=== PATIENT | female | born 1950 | race Caucasian/White ===

== ENCOUNTER 2016-06-02 12:56 | Inpatient (IN) ==
--- NOTE | 2016-06-02 13:38 | Emergency Department Note ---
Disposition Clinical Impression: Syncope and collapse, Hyperglycemia Disposition: Admitted As Inpatient Condition: Fair Time of Disposition: 15:48 Syncope HPI - General Chief Complaint: ED Syncope Stated Complaint: Dizzy, Fall Time Seen by Provider: 06/02/16 13:11 Source: patient Limitations: no limitations Nursing Notes Reviewed: Yes Vital Signs Reviewed: Yes - History of Present Illness HPI Narrative: Patient is a 65-year-old female who presents to [facility] ED with a chief complaint of syncopal episode. Prior to arrival, they were walking into a fast food restaurant when she felt dizzy and lightheaded and collapsed. States she did hit the back of her head. Positive loss of consciousness. Is having some neck pain. She has a history of frequent syncopal episodes. Apparently she had a surgical procedure in her neck to remove a bone spur that they thought was causing syncopal episodes. States they have improved since then but she is still having them. Denies any chest pain or difficulty breathing. No abdominal pain, problems with urination or bowel movements. No fevers or chills. 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 Past Medical History - Past Medical History Attestation: Yes The following information was validated with the patient. Source: patient Medical history: Reports: diabetes, other Psychiatric history: Reports: anxiety, depression - Social History Smoking Status: Never smoker Smokeless Tobacco Status: No Alcohol use: Reports: none Drug use: Reports: none Physical Exam - General Limitations: no limitations General appearance: alert, in no apparent distress - Head Head exam: atraumatic, normocephalic, normal inspection - Eye Eye exam: Present: normal appearance, PERRL, EOMI - ENT ENT exam: normal exam, normal oropharynx, mucous membranes moist - Neck Neck exam: Present: normal inspection, full ROM, trachea midline, tenderness - Chest Chest inspection: Present: normal inspection, symmetric chest wall rise - Respiratory Respiratory exam: Present: normal lung sounds bilaterally - Cardiovascular Cardiovascular exam: Present: regular rate, normal rhythm, normal heart sounds - Abdominal Exam Abdominal exam: Present: soft, Non-Tender. Absent: tenderness, distention, guarding, rebound, rigidity - Extremities Exam Extremities exam: Present: normal inspection, full ROM. Absent: tenderness, pedal edema - Back Exam Back exam: Present: normal inspection, full ROM. Absent: tenderness - Neurological Exam Neurological exam: Present: alert, oriented X3 - Psychiatric Psychiatric exam: Present: normal affect, normal mood - Skin Skin exam: Present: warm, dry, intact, normal color Course Course Narrative: Patient seen and examined. Syncopal episode today with head injury. We will do cardio pulmonary workup and CT head and cervical spine. - Reevaluation(s) Reevaluation #1: Patient's imaging is unremarkable. Her lab work shows hyperglycemia with a glucose 450. Patient does have a history of diabetes. We gave her a liter bolus of fluids. Labs otherwise unremarkable. Will admit for syncope workup. I spoke with the hospitalist Elba Weiss who has accepted patient for admission. Time: 15:47 Vital Signs Temperature 98 F 06/02/16 13:02 Pulse Rate 97 06/02/16 13:02 Respiratory Rate 16 06/02/16 13:02 Blood Pressure 151/77 06/02/16 13:02 O2 Sat by Pulse Oximetry 97 06/02/16 13:02 Temperature 98 F 06/02/16 13:02 Pulse Rate 89 06/02/16 14:32 Respiratory Rate 16 06/02/16 13:22 Blood Pressure 142/105 06/02/16 14:32 O2 Sat by Pulse Oximetry 92 L 06/02/16 13:22 Oxygen Delivery Oxygen Delivery Room Air Syncope - Medical Records Medical records reviewed: Yes I reviewed the patient's medical records. - Lab Data Lab results reviewed: Yes I reviewed the patient's lab results. Result diagrams: 06/02/16 13:41 06/02/16 13:41 Lab Results 06/02/16 06/02/16 06/02/16 Range/Units 13:41 13:41 13:41 WBC 6.3 (4.3-11.1) K/mcL RBC 4.38 (3.82-4.97) M/mcL Hgb 12.7 (11.5-15.4) g/dL Hct 38.7 (35.3-44.9) % MCV 88.4 (83.0-100.0) fL MCH 29.0 (28.0-33.3) pg MCHC 32.8 (31.6-35.5) g/dL RDW 12.8 (11.5-14.5) % Plt Count 244 (140-400) K/mcL MPV 11.0 (9.4-12.4) fL Immature Gran % 0.3 (0-4) % Seg Neutrophils % 52.7 % Lymphocytes % 37.5 % Monocytes % 6.4 % Eosinophils % 2.6 % Basophils % 0.5 % Neutrophils # 3.3 (1.6-8.9) K/mcL Lymphocytes # 2.4 (0.6-4.6) K/mcL Monocytes # 0.4 (0.0-1.3) K/mcL Eosinophils # 0.2 (0.0-0.6) K/mcL Basophils # 0.0 (0.0-0.2) K/mcL PT 11.7 (9.4-12.1) Seconds INR 1.1 APTT 29.3 (26.0-36.0) Seconds VBG pH (7.32-7.42) pH Units VBG pCO2 (41-51) mmHg VBG pO2 (25-40) mmHg VBG HCO3 (21-27) mEq/L Sodium 135 L (136-145) mEq/L Potassium 4.2 (3.5-4.5) mEq/L Chloride 104 (98-109) mEq/L Carbon Dioxide 22 (19-29) mEq/L BUN 11 (7-20) mg/dL Creatinine 0.97 (0.57-1.11) mg/dL Est GFR ( Amer) > 60 (> 60) Est GFR (Non-Af Amer) 58 L (> 60) BUN/Creatinine Ratio 11 (6-26) Glucose 453 H (70-99) mg/dL POC Glucose (58-89) Calculated Osmolality 299 (280-300) Calcium 8.5 L (8.6-10.8) mg/dL Troponin I (0-0.03) ng/mL Beta-Hydroxybutyric Acd (0.02-0.27) mmol/L 06/02/16 06/02/16 06/02/16 Range/Units 13:41 14:32 14:48 WBC (4.3-11.1) K/mcL RBC (3.82-4.97) M/mcL Hgb (11.5-15.4) g/dL Hct (35.3-44.9) % MCV (83.0-100.0) fL MCH (28.0-33.3) pg MCHC (31.6-35.5) g/dL RDW (11.5-14.5) % Plt Count (140-400) K/mcL MPV (9.4-12.4) fL Immature Gran % (0-4) % Seg Neutrophils % % Lymphocytes % % Monocytes % % Eosinophils % % Basophils % % Neutrophils # (1.6-8.9) K/mcL Lymphocytes # (0.6-4.6) K/mcL Monocytes # (0.0-1.3) K/mcL Eosinophils # (0.0-0.6) K/mcL Basophils # (0.0-0.2) K/mcL PT (9.4-12.1) Seconds INR APTT (26.0-36.0) Seconds VBG pH (7.32-7.42) pH Units VBG pCO2 (41-51) mmHg VBG pO2 (25-40) mmHg VBG HCO3 (21-27) mEq/L Sodium (136-145) mEq/L Potassium (3.5-4.5) mEq/L Chloride (98-109) mEq/L Carbon Dioxide (19-29) mEq/L BUN (7-20) mg/dL Creatinine (0.57-1.11) mg/dL Est GFR ( Amer) (> 60) Est GFR (Non-Af Amer) (> 60) BUN/Creatinine Ratio (6-26) Glucose (70-99) mg/dL POC Glucose 426 H* (58-89) Calculated Osmolality (280-300) Calcium (8.6-10.8) mg/dL Troponin I 0.00 (0-0.03) ng/mL Beta-Hydroxybutyric Acd 0.12 (0.02-0.27) mmol/L 06/02/16 Range/Units 14:48 WBC (4.3-11.1) K/mcL RBC (3.82-4.97) M/mcL Hgb (11.5-15.4) g/dL Hct (35.3-44.9) % MCV (83.0-100.0) fL MCH (28.0-33.3) pg MCHC (31.6-35.5) g/dL RDW (11.5-14.5) % Plt Count (140-400) K/mcL MPV (9.4-12.4) fL Immature Gran % (0-4) % Seg Neutrophils % % Lymphocytes % % Monocytes % % Eosinophils % % Basophils % % Neutrophils # (1.6-8.9) K/mcL Lymphocytes # (0.6-4.6) K/mcL Monocytes # (0.0-1.3) K/mcL Eosinophils # (0.0-0.6) K/mcL Basophils # (0.0-0.2) K/mcL PT (9.4-12.1) Seconds INR APTT (26.0-36.0) Seconds VBG pH 7.30 L (7.32-7.42) pH Units VBG pCO2 51 (41-51) mmHg VBG pO2 41 H (25-40) mmHg VBG HCO3 25.1 (21-27) mEq/L Sodium (136-145) mEq/L Potassium (3.5-4.5) mEq/L Chloride (98-109) mEq/L Carbon Dioxide (19-29) mEq/L BUN (7-20) mg/dL Creatinine (0.57-1.11) mg/dL Est GFR ( Amer) (> 60) Est GFR (Non-Af Amer) (> 60) BUN/Creatinine Ratio (6-26) Glucose (70-99) mg/dL POC Glucose (58-89) Calculated Osmolality (280-300) Calcium (8.6-10.8) mg/dL Troponin I (0-0.03) ng/mL Beta-Hydroxybutyric Acd (0.02-0.27) mmol/L - Radiology Data Radiology results reviewed: Yes I reviewed the patient's radiology results. Chest X-Ray 06/02/16 13:22 IMPRESSION: No acute radiographic finding in the chest. D/ / Raoul Mckenzie MD / Raoul Mckenzie MD Interpreting Provider: Raoul Mckenzie MD Cervical Spine CT 06/02/16 13:24 IMPRESSION: No acute abnormality of the cervical spine. D/ / Evens Hurley MD / Evens Hurley MD Interpreting Provider: Evens Hurley MD Head CT 06/02/16 13:24 IMPRESSION: 1. No acute intracranial abnormality. 2. Status post suboccipital craniotomy. D/ / Evens Hurley MD / Evens Hurley MD Interpreting Provider: Evens Hurley MD - EKG Data EKG attestation: Yes I reviewed and interpreted this EKG. EKG results narrative: EKG done at 1317 shows normal sinus rhythm with a rate of [address] elevation or depression. Prominent Q-wave in lead 3 and inverted T-wave. Normal axis. Attestation Statement - Attestation Attestation: Patient was seen with resident physician. I reviewed the history, physical, assessment and plan, and agree with the findings. I also personally evaluated this patient and had [id number] time with this patient. 65-year-old female presents to the emergency department with chief complaint of syncope. Patient states she had a bone spur removed from her neck which was causing syncope approximately a year ago. She said this was a defect, but cannot otherwise characterize the injury. Said that her syncopal have improved but they have gotten worse the last 2 days. Last night she had a syncopal episode where she fell to the ground and woke up on the ground. Today she is going to fast food restaurant and had a witnessed second syncopal episode where she was getting out of car and fell down impacting the back of her head on the ground. She was unconscious for an unspecified amount of time. Nursing reports stated that as she was attempting to get out of her wheelchair and into the bed she got very lightheaded and almost passed out. Patient denies chest pain or shortness of breath. She has had some mild head and neck tenderness and pain, but she is able to ambulate otherwise. On examination ENT normocephalic atraumatic. Neck is nontender to palpation she is in a c-collar at the time of exam. Heart normal. Lungs normal. Abdomen soft and nontender. Pelvis stable. Extremities unremarkable with no acute injuries. Neurologically patient is intact and alert and oriented. Will do full syncope workup including head CT scan. EKG shows no acute changes. Laboratory testing was significant for hyperglycemia without acidosis. Orthostatic vital signs did not show significant changes. We will admit patient to the hospital for syncope considering her age and recurrence of symptoms. Head and neck CT showed no acute changes. Chest x-ray was also negative. EKG did not show any specific cause for her symptoms. Hemodynamically she remained stable. I agree with the resident physician assessment and plan.
[2016-06-02 13:50] LABS: Basophils % 0.5 %; Eosinophils # 0.2 K/mcL (0.0-0.6); Eosinophils % 2.6 %; Hematocrit 38.7 % (35.3-44.9); Hemoglobin 12.7 g/dL (11.5-15.4); Immature Granulocytes % 0.3 % (0-4); Lymphocytes # 2.4 K/mcL (0.6-4.6); Lymphocytes % 37.5 %; Mean Corpuscular HGB Conc 32.8 g/dL (31.6-35.5); Mean Corpuscular Volume 88.4 fL (83.0-100.0); Monocytes # 0.4 K/mcL (0.0-1.3); Monocytes % 6.4 %; Neutrophils # 3.3 K/mcL (1.6-8.9); Platelet Count 244 K/mcL (140-400); Red Blood Count 4.38 M/mcL (3.82-4.97); Red Cell Distribution Width 12.8 % (11.5-14.5); Segmented Neutrophils % 52.7 %
[2016-06-02 14:01] LABS: INR 1.1; Prothrombin Time 11.7 Seconds (9.4-12.1)
[2016-06-02 14:02] LABS: BUN/Creatinine Ratio 11 (6-26); Blood Urea Nitrogen 11 mg/dL (7-20); Calcium 8.5 mg/dL (8.6-10.8); Carbon Dioxide 22 mEq/L (19-29); Chloride 104 mEq/L (98-109); Glucose 453 mg/dL (70-99); Osmolality,Calculated 299 (280-300); Potassium 4.2 mEq/L (3.5-4.5); Sodium 135 mEq/L (136-145); eGFR For African Americans > 60 (> 60); eGFR For Non-African Americans 58 (> 60)
[2016-06-02 14:04] LABS: Activated Partial Thrombo Time 29.3 Seconds (26.0-36.0)
[2016-06-02] MEDS ORDERED: 0.9 % Sodium Chloride 1,000 ML IVC ONE (14:21)
[2016-06-02 15:09] LABS: VBG HCO3 25.1 mEq/L (21-27); VBG PH 7.3 pH Units (7.32-7.42)
[2016-06-02] MEDS ORDERED: Naloxone 0.4 MG/ML INJ IVP PRN (16:33)
[2016-06-02] MEDS ORDERED: D5% in Water 1,000 ML IV PRN (16:42)
[2016-06-02] MEDS ORDERED: Dextrose Gel 15 GM PO PRN ×2 (16:42)
[2016-06-02] MEDS ORDERED: *HR* Dextrose 50 % in Water (Syg) 50 ML SYRINGE IVP PRN (16:42)
[2016-06-02] MEDS ORDERED: *HR* LORazepam 0.5 MG TABLET PO PRN (16:47)
--- NOTE | 2016-06-02 17:11 | Internal Med History&Physical ---
Date of Encounter: 06/02/16 Time of Encounter: 16:00 Assessment and Plan (1) Syncope and collapse Current visit: Yes Status: Acute Etiology is undetermined. Patient has a brain surgery, need to rule out seizure /neurology etiology. 1. Will place patient on continuous cardiac monitoring to rule out arrhythmia. 2. Will check echocardiogram. 3. Will order MRI brain and MRA neck to rule out infarct. 4. Will order EEG to rule out seizure. 5. Will ask for neurology consult. Neurologist Dr. Magaña was informed. 6. Fall precautions 7. Orthostatic vitals done in ER, no orthostatic hypotension. (2) Hypertension Current visit: Yes Status: Acute Continue home medications losartan. Qualifiers: Hypertension type: essential hypertension Qualified Code(s): I10 - Essential (primary) hypertension (3) Diabetes Current visit: Yes Status: Acute Patient has poorly controlled diabetes. Will continue basal and sliding scale insulin coverage. Closely follow up glucose level. Will give IV fluid hydration because of the glucose level is high. Qualifiers: Diabetes mellitus type: type 2 Diabetes mellitus complication status: without complication Diabetes mellitus detention insulin use: with terminal gauger use Qualified Code(s): E11.9 - Type 2 diabetes mellitus without complications ; Z79.4 - rn long term care (current) use of insulin (4) Hyperglycemia Current visit: Yes Status: Acute Glu >400, Ketone negative, AG 9, Osm 299. We will continue basal and sliding scale insulin. IV fluid to correct dehydration. (5) DVT prophylaxis Current visit: Yes Status: Acute Heparin subcutaneously Internal Medicine - H&P: HPI Chief complaint: Syncope Admitted From: Home Plans for Post Hospital Care: Home History of present illness: Ms. Dang is a 65 year old female present to ER for syncope. Patient has history of diabetes. Patient has a history of brain surgery in last June ( "water drainage" per pt) in [facility] by Dr Hooper. After surgery, patient started to feel vertigo, symptoms is getting worse recently. Patient has syncope twice yesterday and twice today. She complains headache prior to syncope. She denies of palpitation, feeling hungry prior to syncope. Syncope was witnessed by family, lasted several seconds. Patient denies injury. Family said the patient has no shaking during syncope. Patient denies urinary or fecal incontinence, denies tongue bite. Patient was sent to emergency room for syncope. She was found hyperglycemia at 400 level. Ketone is negative. Patient has poorly controlled diabetes, last hemoglobin A1c checked 2 months ago , was 12. Patient denies fever, runny nose, muscle aches, nausea, or vomiting. She has chronic diarrhea with loose stool 3 time a day for 3 months. Past Med Surg Social Fam HX - Past Medical History Medical history: diabetes, other Psychiatric history: anxiety, depression - Social History Smoking Status: Never smoker Smokeless Tobacco Status: No Alcohol use: none Drug use: none Internal Medicine - H&P: Meds Aspirin [Lo-Dose Aspirin EC] 81 mg PO DAILY 06/02/16 [History] Insulin Glargine,Hum.rec.anlog [Lantus Solostar] 45 unit SQ HS 06/02/16 [History ] Insulin LISPRO [HumaLOG] 7 units SQ TIDWM 06/02/16 [History] LORazepam [Ativan] 0.5 mg PO QID PRN 06/02/16 [History] Losartan Potassium [Cozaar] 50 mg PO DAILY 06/02/16 [History] Meclizine [Antivert] 25 mg PO TID PRN 06/02/16 [History] Melatonin/Pyridoxine HCl (B6) [Melatonin 5 mg Tablet] 10 mg PO HS 06/02/16 [ History] Paroxetine [Paxil] 30 mg PO DAILY 06/02/16 [History] Allergies No Known Allergies Allergy (Verified 06/02/16 13:02) All Systems PM: A 10-system review of systems was performed and is negative for pertinent findings except as documented above in the HPI. - Constitutional Vitals: Temp Pulse Resp BP Pulse Ox 98 F 85 16 150/83 95 06/02/16 13:02 06/02/16 16:41 06/02/16 16:41 06/02/16 16:41 06/02/16 16:41 General appearance: Present: A&O X 3, obese, answers questions appropriately - Head Head exam: Present: atraumatic, normocephalic - Eye Eye exam: Present: PERRL, conjuntiva pink, sclera anicteric Pupils: Present: PERRL - Neck Neck exam general surgery: Present: supple, trachea midline. Absent: lymphadenopathy - Respiratory Respiratory exam: Present: CTAB. Absent: accessory muscle use, rales, rhonchi, wheezes - Cardiovascular Cardiovascular exam: Present: RRR, +S1, +S2. Absent: diastolic murmur, gallop, rubs, systolic murmur - GI/Abdominal GI/Abdominal exam: Present: normal bowel sounds, soft, no peritoneal signs. Absent: distended, tenderness - Extremities Exam Extremities exam: Present: warm, radial pulses palpable and symetrical. Absent : calf tenderness, cyanotic, pedal edema - Neurological Exam Neurological exam: Present: CN II-XII intact, oriented X3, no focal deficits. Absent: pronater drift, facial droop, speech deficit - Skin Skin exam: Present: dry, intact Internal Med - H&P Results - Labs CBC & Chem 7: 06/02/16 13:41 06/02/16 13:41
[2016-06-02] MEDS: Insulin DETEMIR 100 UNIT/ML X5UNITS SQ SCH (21:20)
[2016-06-02] MEDS: *HR* Heparin 5,000 UNIT/ML VIAL SQ SCH (21:20)
[2016-06-02] MEDS: 0.9 % Sodium Chloride 1,000 ML IVC SCH (21:47)
[2016-06-02] MEDS: Insulin LISPRO 300 UNITS/3 ML VIAL SQ SCH (22:47)
[2016-06-02] MEDS: MELATONIN PO SCH (22:52)
[2016-06-02] MEDS: PYRIDOXINE HCL PO SCH (22:52)
[2016-06-03 04:55] LABS: Basophils % 0.3 %; Eosinophils # 0.3 K/mcL (0.0-0.6); Eosinophils % 2.5 %; Hematocrit 39.3 % (35.3-44.9); Immature Granulocytes % 0.5 % (0-4); Lymphocytes # 4.1 K/mcL (0.6-4.6); Lymphocytes % 40.4 %; Mean Corpuscular HGB Conc 33.1 g/dL (31.6-35.5); Mean Corpuscular Hemoglobin 29.3 pg (28.0-33.3); Mean Corpuscular Volume 88.5 fL (83.0-100.0); Mean Platelet Volume 10.9 fL (9.4-12.4); Monocytes # 0.7 K/mcL (0.0-1.3); Monocytes % 7.2 %; Platelet Count 261 K/mcL (140-400); Red Blood Count 4.44 M/mcL (3.82-4.97); Segmented Neutrophils % 49.1 %
[2016-06-03 05:02] LABS: Hemoglobin A1C 9.8 %
[2016-06-03] MEDS: *HR* Heparin 5,000 UNIT/ML VIAL SQ SCH ×2 (06:17→18:23)
[2016-06-03 06:50] LABS: Alanine Aminotransferase 26 Units/L (0-55); Albumin 3.2 g/dL (3.5-5.0); Albumin/Globulin Ratio 1.1 (1.1-2.2); Alkaline Phosphatase 110 Units/L (38-126); Aspartate Amino Transferase 25 Units/L (5-34); BUN/Creatinine Ratio 10 (6-26); Bilirubin,Total 0.4 mg/dL (0.2-1.2); Blood Urea Nitrogen 8 mg/dL (7-20); Calcium 8.5 mg/dL (8.6-10.8); Carbon Dioxide 23 mEq/L (19-29); Chloride 111 mEq/L (98-109); Chol/HDL Ratio 4.1 (0-4.9); Cholesterol 211 mg/dL (< 200); Glucose 79 mg/dL (70-99); HDL Cholesterol 51 mg/dL (40-59); LDL Cholesterol,Calculated 128 mg/dL (0-99); Magnesium 1.8 mg/dL (1.6-2.6); Osmolality,Calculated 291 (280-300); Phosphorous 3.5 mg/dL (2.3-4.7); Potassium 3.5 mEq/L (3.5-4.5); Sodium 142 mEq/L (136-145); Total Protein 6.2 g/dL (6.0-8.3); Triglycerides 160 mg/dL (< 150); eGFR For African Americans > 60 (> 60); eGFR For Non-African Americans > 60 (> 60)
[2016-06-03] MEDS: 0.9 % Sodium Chloride 1,000 ML IVC SCH ×2 (07:40→13:38)
[2016-06-03] MEDS: Insulin LISPRO 300 UNITS/3 ML VIAL SQ SCH ×5 (07:42→22:06)
[2016-06-03] MEDS: Aspirin Enteric Coated 81 MG Tablet PO SCH (07:47)
[2016-06-03] MEDS: Acetaminophen 325 MG TABLET PO PRN ×2 (11:13→20:49)
--- NOTE | 2016-06-03 11:47 | Neurology - Consult Note ---
Date of Encounter: 06/03/16 Time of Encounter: 08:35 Assessment and Plan (1) Syncope and collapse Current Visit: Yes Status: Acute Patient seems to have multiple spells, dominantly all of them seems to be happening when she is standing and never happen when she is laying in the bed less likely Seizures, she also get dizzy when standing up quickly, suspect orthostatic vs other cardiac causes, I would recommend cardiogenic workup NO evidence of Stroke, MRI is negative for any acute findings at the same time no evidence of any other vascular abnormality on MRA of the neck particularly no evidence of any posterior circulation impingement dissection or off any critical stenosis will get EEG, showing no interictal abnormality no indication to start on any seizure medication. suggest work up for cardiac causes of syncopy as well as other metabolic work up as per primary team (2) H/O cervical discectomy Current Visit: Yes Status: Acute This patient who noted to have surgery without any obvious sign off hardware failure on imaging studies and also not on any abnormality on clinical examination no evidence of any new abnormality in the cervical spine as per CT of the cervical spine. (3) S/P cervical spinal fusion Current Visit: Yes Status: Acute History of Present Illness HPI: Ms. Dang is a 65 year old female who was admitted via ED with a chief complaint of multiple passing out spells . According to the patient she was walking into a fast food restaurant when she felt dizzy and lightheaded and collapsed. States she did hit the back of her head. sHe did loose consciousness. pt has a history of frequent syncopal episodes. And according to her she has several spells in the last several days predominantly she felt lightheaded and dizzy and feels like she is going to passed out sometime she passed out completely and sometime she did not lose complete consciousness she denies any jerking or shaking, and at the same time she denies any postictal state as she is back to normal quickly. These spells happened while she was standing and now are happening when she is in the bed or sitting down. she had a surgical procedure in her neck to remove a bone spur that they thought was causing syncopal episodes. She is not able to give much detailed information about the procedure but had not done last year some time. States they have improved since then but she is still having them. Denies any chest pain or difficulty breathing. No abdominal pain, problems with urination or bowel movements. No fevers or chill Past Med Surg Social Fam HX - Past Medical History Medical history: diabetes, other Psychiatric history: anxiety, depression - Social History Smoking Status: Never smoker Smokeless Tobacco Status: No Alcohol use: none Drug use: none - Family History Father Hx Family Cardiac Disorders: Yes (asbestos related) Hx Family Respiratory Disorders: Yes (asbestos) Hx Family Cancer: Yes Medications and Allergies Aspirin [Lo-Dose Aspirin EC] 81 mg PO DAILY 06/02/16 [History] Insulin Glargine,Hum.rec.anlog [Lantus Solostar] 45 unit SQ HS 06/02/16 [History ] Insulin LISPRO [HumaLOG] 7 units SQ TIDWM 06/02/16 [History] LORazepam [Ativan] 0.5 mg PO QID PRN 06/02/16 [History] Losartan Potassium [Cozaar] 50 mg PO DAILY 06/02/16 [History] Meclizine [Antivert] 25 mg PO TID PRN 06/02/16 [History] Melatonin/Pyridoxine HCl (B6) [Melatonin 5 mg Tablet] 10 mg PO HS 06/02/16 [ History] Paroxetine [Paxil] 30 mg PO DAILY 06/02/16 [History] Allergies No Known Allergies Allergy (Verified 06/02/16 13:02) All Systems: A 10-system review of systems was performed and is negative for pertinent findings except as documented above in the HPI. Physical Examination - Vital Signs Vital Signs: Initial Vital Signs Temp Pulse Resp BP Pulse Ox 98 F 97 16 151/77 97 06/02/16 13:02 06/02/16 13:02 06/02/16 13:02 06/02/16 13:02 06/02/16 13:02 - Neurologic Detailed motor examination: full strength in all major muscle groups Motor examination - right side: 5: deltoids, biceps, triceps, wrist flexion, wrist extension, home theatre technician, hip flexors, tibialis Anterior, quadriceps, toe extension (EHL), plantarflexion Motor examination - left side: 55: deltoids, biceps, triceps, wrist flexion, wrist extension, hip flexors, home theatre technician, quadriceps, tibialis Anterior, toe extension (EHL), plantarflexion Mental Status Examination: awake, alert, oriented to person, oriented to place, oriented to time, follows commands appropriately, answers questions appropriately, no agnosia, no aphasia, no aproxia Cranial nerve examination: PERRL, EOMI, visual magallanes intact, corneal reflexes brisk symmetrically, sensory to face intact, mastication intact, no facial asymmetry is present, no dysarthria, hearing is intact symmetrically, soft palate elevates bilaterally upon phonation, gag reflex intact, flexes SCM and trapezius muscles symmetrically with full power, tongue protrudes midline, no atrophy or facial fasiculations present Cerebellar examination: no dysmetria, performs finger to nose and heel to mcgregor symmetrically without ataxia, no gait ataxia, no truncal ataxia, no difficulty with rapid alternating movements Results - Laboratory Findings CBC and BMP: 06/03/16 04:19 06/03/16 05:47 Abnormal lab findings: Abnormal lab results VBG pH 7.30 pH Units (7.32-7.42) L 06/02/16 14:48 VBG pO2 41 mmHg (25-40) H 06/02/16 14:48 Chloride 111 mEq/L (98-109) H 06/03/16 05:47 POC Glucose 133 (58-89) H 06/03/16 10:57 Hemoglobin A1c 9.8 % (-5.6) H 06/03/16 04:19 Calcium 8.5 mg/dL (8.6-10.8) L 06/03/16 05:47 Albumin 3.2 g/dL (3.5-5.0) L 06/03/16 05:47 Triglycerides 160 mg/dL (< 150) H 06/03/16 05:47 Cholesterol 211 mg/dL (< 200) H 06/03/16 05:47 LDL Cholesterol, Calc 128 mg/dL (0-99) H 06/03/16 05:47 VLDL Cholesterol, Calc 32 mg/dL (< 31) H 06/03/16 05:47 Consult Discharge Plan - Plan Referrals: Rene Mota DO [Primary Care Provider] - 06/13/16 11:00 am
--- NOTE | 2016-06-03 15:33 | Electrocardiograph Report ---
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
--- NOTE | 2016-06-03 16:39 | EEG/EMG/Oth Biometrics Report ---
EEG Procedure Report Date of procedure: 06/03/16 EEG Procedure: Routine EEG Procedure Note: Routine EEG Routine 18-channel digital EEG was obtained to rule out any seizure activity or focal abnormalities. FINDINGS: Background rhythm during awake stage shows well-organized, well- developed, average voltage 8 to 9 hertz alpha activity in the posterior regions. It blocks with eye opening and it is bilaterally synchronous and symmetrical. No [id number]-cyiy discharges or any lateralizing abnormalities are seen. Photic stimulation did not produce any abnormalities. Hyperventilation was not performed. No abnormalities were found during the procedure. Intermittent EMG artifacts were seen. Stage II sleep was not achieved. IMPRESSION: Normal awake study. No epileptiform discharges or any other paroxysmal activities or focal abnormalities seen. Clinical correlation is recommended. please note that normal EEG does not exclude the diagnosis of seizure or epilepsy
--- NOTE | 2016-06-03 19:57 | Internal Med Progress Note ---
Date of Encounter: 06/03/16 Time of Encounter: 10:00 - Assessment and plan (1) Syncope and collapse Current Visit: Yes Status: Acute Assessment and plan: Etiology is undetermine. MRA brain and MRA neck unremarkable. EEG unremarkable. Will continue cardiac monitoring and follow-up echo result. PTOT evaluation. (2) Hypertension Current Visit: Yes Status: Acute Assessment and plan: Stable, continue home medications Qualifiers: Hypertension type: essential hypertension Qualified Code(s): I10 - Essential (primary) hypertension (3) Diabetes Current Visit: Yes Status: Acute Assessment and plan: Glucose is getting better controlled now. We will continue basal and sliding scale insulin. 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 (5) DVT prophylaxis Current Visit: Yes Status: Acute Assessment and plan: Heparin subcutaneously. - Time Spent With Patient 25 - 35 minutes - Subjective Interval history: Patient is a 65-year-old female admitted for syncope. Past medical history is significant for diabetes, history of brain surgery. Patient was seen and examined. Still complaining dizziness/vertigo. Vitals are stable. Blood sugar getting better controlled. Neurology consult appreciated. Brain MRI and a neck MRA unremarkable. EEG has been done, no epileptic waveform notified. Will continue cardiac monitoring, follow up echo results. PTOT evaluation, fall precautions. - Constitutional Vitals: Temp Pulse Resp BP Pulse Ox 97.5 F L 83 18 157/83 96 06/03/16 19:31 06/03/16 19:31 06/03/16 19:31 06/03/16 19:31 06/03/16 19:31 General appearance: Present: A&O X 3, obese, answers questions appropriately - Head Head exam: Present: atraumatic, normocephalic - Eye Eye exam: Present: PERRL, conjuntiva pink, sclera anicteric Pupils: Present: PERRL - Neck Neck exam general surgery: Present: supple, trachea midline. Absent: lymphadenopathy - Respiratory Respiratory exam: Present: CTAB. Absent: accessory muscle use, rales, rhonchi, wheezes - Cardiovascular Cardiovascular exam: Present: RRR, +S1, +S2. Absent: diastolic murmur, gallop, rubs, systolic murmur - GI/Abdominal GI/Abdominal exam: Present: normal bowel sounds, soft, no peritoneal signs. Absent: distended, tenderness - Extremities Exam Extremities exam: Present: warm, radial pulses palpable and symetrical. Absent : calf tenderness, cyanotic, pedal edema - Neurological Exam Neurological exam: Present: CN II-XII intact, oriented X3, no focal deficits. Absent: pronater drift, facial droop, speech deficit - Skin Skin exam: Present: dry, intact Internal Medicine: Result - Labs CBC & Chem 7: 06/03/16 04:19 06/03/16 05:47 Labs: Short CBC 06/03/16 Range/Units 04:19 WBC 10.2 D (4.3-11.1) K/mcL Hgb 13.0 (11.5-15.4) g/dL Hct 39.3 (35.3-44.9) % Plt Count 261 (140-400) K/mcL Neutrophils # 5.0 (1.6-8.9) K/mcL BMP 06/03/16 05:47 Sodium 142 D Potassium 3.5 Chloride 111 H Carbon Dioxide 23 BUN 8 Creatinine 0.77 Glucose 79 Calcium 8.5 L Liver Function 06/03/16 Range/Units 05:47 Total Bilirubin 0.4 (0.2-1.2) mg/dL AST 25 (5-34) Units/L ALT 26 (0-55) Units/L Alkaline Phosphatase 110 (38-126) Units/L Albumin 3.2 L (3.5-5.0) g/dL - ABG Interpretation ABG results: PT/INR, D-dimer PT 11.7 Seconds (9.4-12.1) 06/02/16 13:41 - Impressions Impressions Brain MRI 06/02/16 16:38 IMPRESSION: 1. No acute intracranial abnormality. 2. Mild chronic white matter microvascular ischemic changes. 3. Remote lacunar infarct in the left cerebellar hemisphere. D/ / Kenneth Mccoy MD / Kenneth Mccoy MD Interpreting Provider: Kenneth Mccoy MD Neck MRA 06/02/16 16:38 IMPRESSION: No arterial abnormality in the neck within limits motion artifact and lack of intravenous contrast. D/ / Kenneth Mccoy MD / Kenneth Mccoy MD Interpreting Provider: Kenneth Mccoy MD Consult Discharge Plan - Plan Referrals: Rene Mota DO [Primary Care Provider] - 06/13/16 11:00 am
[2016-06-03] MEDS: MELATONIN PO SCH (20:50)
[2016-06-03] MEDS: PYRIDOXINE HCL PO SCH (20:50)
[2016-06-03] MEDS: Insulin DETEMIR 100 UNIT/ML X5UNITS SQ SCH (22:06)
[2016-06-04 04:53] LABS: Basophils % 0.5 %; Eosinophils # 0.2 K/mcL (0.0-0.6); Eosinophils % 3.3 %; Hematocrit 37.3 % (35.3-44.9); Hemoglobin 12.7 g/dL (11.5-15.4); Immature Granulocytes % 0.3 % (0-4); Lymphocytes # 3.7 K/mcL (0.6-4.6); Lymphocytes % 50.1 %; Mean Platelet Volume 11.3 fL (9.4-12.4); Monocytes # 0.5 K/mcL (0.0-1.3); Monocytes % 6.4 %; Neutrophils # 2.9 K/mcL (1.6-8.9); Platelet Count 241 K/mcL (140-400); Red Blood Count 4.24 M/mcL (3.82-4.97); Segmented Neutrophils % 39.4 %
[2016-06-04 05:09] LABS: BUN/Creatinine Ratio 12 (6-26); Blood Urea Nitrogen 9 mg/dL (7-20); Calcium 8.5 mg/dL (8.6-10.8); Carbon Dioxide 25 mEq/L (19-29); Chloride 108 mEq/L (98-109); Glucose 142 mg/dL (70-99); Osmolality,Calculated 291 (280-300); Potassium 3.7 mEq/L (3.5-4.5); Sodium 140 mEq/L (136-145); eGFR For African Americans > 60 (> 60); eGFR For Non-African Americans > 60 (> 60)
[2016-06-04] MEDS: *HR* Heparin 5,000 UNIT/ML VIAL SQ SCH (05:17)
[2016-06-04] MEDS: Insulin LISPRO 300 UNITS/3 ML VIAL SQ SCH ×2 (07:50→11:39)
--- NOTE | 2016-06-04 08:29 | ECHO - Doppler Report ---
Echocardiogram Name: Denise Dang Date of Study: 06/03/2016 Date: 1950 Ht: 60.0 in Medical Record#: [id number] Age: 65 Wt: 200.0 lb Gender: Female BSA: 1.87 Order #: [id number] Location: [facility] Room #: [id number] Reading Physician: Cesar Tena MD, [facility] Scientist/Engineer: Mariela Watkins Ordering Physician: Susan Cartwright MD Primary Physician: Chong Mota MD Indications: Syncope Impressions: Normal LV systolic function, LVEF 60-65%. Mild left ventricular diastolic dysfunction. Normal right ventricular size and function. No significant valvular dysfunction. Mild pulmonary hypertension. Estimated RVSP = 37 mmHg. Left Ventricular Wall Motion: Rest Echo Findings All wall segments showed normal motion. Findings: Study Quality * Suboptimal echo windows. ECG Findings * Normal sinus rhythm. Left Ventricle * Normal LV systolic function, LVEF 60-65%. * Normal LV chamber size and wall thickness. * Mild left ventricular diastolic dysfunction. Right Ventricle * Normal right ventricular size and function. Left Atrium * Normal left atrial size. Right Atrium * Normal right atrial size. Aorta * Normally sized aortic root. Pericardium * There is no pericardial effusion present. IVC * Normal IVC dimensions and inspiratory collapse. Aortic Valve * Aortic valve not well visualized. * No aortic stenosis. * No aortic regurgitation. Mitral Valve * Normal mitral valve structure. * No mitral stenosis. * Trace mitral regurgitation. Tricuspid Valve * Tricuspid valve not well visualized. * No tricuspid stenosis. * Trace tricuspid regurgitation. * Mild pulmonary hypertension. Estimated RVSP = 37 mmHg. Pulmonic Valve * Pulmonic valve not well visualized. * No pulmonic stenosis. * No pulmonic regurgitation. History Hypertension Diabetes Hypercholesteremia Family History of CAD Measurements: BP: 153/ 91 2D Normal Values RVIDd: 3.20 cm IVSd: 1.00 cm 0.6 - 1.0 cm LVIDd: 3.80 cm 3.7 - 5.6 cm LVPWd: 1.00 cm 0.6 - 1.1 cm LVIDs: 2.10 cm 1.5 - 3.6 cm AO: 2.60 cm < 4.0 cm %FS: 44.70 cm >25 % LA volume: 57 Mitral Valve Peak E:.63 m/sec Peak A:1.04 m/sec E/A Ratio:0.6 Tricuspid Valve TV Regurg Peak Grad: 34.00mmHg TV Regurg Peak Mc: 2.91m/sec Updated by Cesar Tena MD, [facility] on 06/04/2016 8:24:44 AM electronically signed on 06/04/2016 8:25:05 AM with status of Final Wall Motion Solomon: 1=Normal, 2=Hypokinesis, 3=Akinesis, 4=Dyskinesis, 5=Aneurysmal, 6=Hyperkinetic, X=Not Visualized (Blank)=Missing
[2016-06-04] MEDS: Aspirin Enteric Coated 81 MG Tablet PO SCH (09:01)
[2016-06-04 10:32] VITALS: BP 144/72
--- NOTE | 2016-06-04 10:36 | Neurology Progress Note ---
Date of Encounter: 06/04/16 Time of Encounter: 08:20 Assessment and Plan (1) Syncope and collapse Current Visit: Yes Status: Acute Patient seems to have multiple spells, dominantly all of them seems to be happening when she is standing and never happen when she is laying in the bed less likely Seizures, she also get dizzy when standing up quickly, suspect orthostatic vs other cardiac causes, I would recommend cardiogenic workup NO evidence of Stroke, MRI is negative for any acute findings at the same time no evidence of any other vascular abnormality on MRA of the neck particularly no evidence of any posterior circulation impingement dissection or off any critical stenosis will get EEG, showing no interictal abnormality no indication to start on any seizure medication. suggest work up for cardiac causes of syncopy as well as other metabolic work up as per primary team MRI and EEG all negative, suggest to look for any cardiogenic causes, NO evidence of any posterior circulation stenosis, no seizures, other work up as per primary team (2) H/O cervical discectomy Current Visit: Yes Status: Acute (3) S/P cervical spinal fusion Current Visit: Yes Status: Acute Subjective Interval history: no futher episodes, EEG, MRI all negative Objective - Constitutional Vitals: Temp Pulse Resp BP Pulse Ox 97.3 F L 94 16 144/72 96 06/04/16 10:30 06/04/16 10:30 06/04/16 10:30 06/04/16 10:30 06/04/16 10:30 - Neurological Exam Motor Examination: Present: full strength in all major muscle groups Motor examination - left side: 5/5: deltoids, biceps, triceps, wrist flexion, wrist extension, hip flexors, night nurse, quadriceps, tibialis Anterior, toe extension (EHL), plantarflexion Mental Status Examination: Present: awake, alert, oriented to person, oriented to place, oriented to time, follows commands appropriately, answers questions appropriately, no agnosia, no aphasia, no aproxia Cranial nerve examination: Present: PERRL, EOMI, visual magallanes intact, corneal reflexes brisk symmetrically, sensory to face intact, mastication intact, no facial asymmetry is present, no dysarthria, hearing is intact symmetrically, soft palate elevates bilaterally upon phonation, gag reflex intact, flexes SCM and trapezius muscles symmetrically with full power, tongue protrudes midline, no atrophy or facial fasiculations present Cerebellar examination: Present: no dysmetria, performs finger to nose and heel to mcgregor symmetrically without ataxia, no gait ataxia, no truncal ataxia, no difficulty with rapid alternating movements Results - Laboratory Findings CBC and BMP: 06/04/16 04:15 06/04/16 04:15 Abnormal lab findings: Abnormal lab results VBG pH 7.30 pH Units (7.32-7.42) L 06/02/16 14:48 VBG pO2 41 mmHg (25-40) H 06/02/16 14:48 Glucose 142 mg/dL (70-99) H 06/04/16 04:15 POC Glucose 110 (58-89) H 06/04/16 07:14 Hemoglobin A1c 9.8 % (-5.6) H 06/03/16 04:19 Calcium 8.5 mg/dL (8.6-10.8) L 06/04/16 04:15 Albumin 3.2 g/dL (3.5-5.0) L 06/03/16 05:47 Triglycerides 160 mg/dL (< 150) H 06/03/16 05:47 Cholesterol 211 mg/dL (< 200) H 06/03/16 05:47 LDL Cholesterol, Calc 128 mg/dL (0-99) H 06/03/16 05:47 VLDL Cholesterol, Calc 32 mg/dL (< 31) H 06/03/16 05:47 Consult Discharge Plan - Plan Referrals: Rene Mota DO [Primary Care Provider] - 06/13/16 11:00 am
--- NOTE | 2016-06-04 11:48 | Discharge Summary ---
Date of Encounter: 06/04/16 Time of Encounter: 11:46 - Discharge Diagnosis (1) Syncope and collapse Priority: Primary Status: Acute Comments: unclear etiology (2) H/O cervical discectomy Priority: Secondary Status: Acute (3) Hyperglycemia Priority: Secondary Status: Acute (4) Hypertension Priority: Secondary Status: Acute Qualifiers: Hypertension type: essential hypertension Qualified Code(s): I10 - Essential (primary) hypertension (5) Diabetes Priority: Secondary Status: Acute Qualifiers: Diabetes mellitus type: type 2 Diabetes mellitus complication status: without complication Diabetes mellitus mcfp insulin use: with mcfp use Qualified Code(s): E11.9 - Type 2 diabetes mellitus without complications ; Z79.4 - nursing home (current) use of insulin - Discharge Medications Home Medications: Aspirin [Lo-Dose Aspirin EC] 81 mg PO DAILY 06/02/16 [History] Insulin Glargine,Hum.rec.anlog [Lantus Solostar] 45 unit SQ HS 06/02/16 [History ] Insulin LISPRO [HumaLOG] 7 units SQ TIDWM 06/02/16 [History] LORazepam [Ativan] 0.5 mg PO QID PRN 06/02/16 [History] Losartan Potassium [Cozaar] 50 mg PO DAILY 06/02/16 [History] Meclizine [Antivert] 25 mg PO TID PRN 06/02/16 [History] Melatonin/Pyridoxine HCl (B6) [Melatonin 5 mg Tablet] 10 mg PO HS 06/02/16 [ History] Paroxetine [Paxil] 30 mg PO DAILY 06/02/16 [History] Allergies/Adverse Reactions: Allergies No Known Allergies Allergy (Verified 06/02/16 13:02) Procedures/tests Complete & Pending: Procedures Performed prior 72 hours Category Date Time Status MR angio neck wo con [MR] Stat MRI 06/02/16 16:38 Completed MR head/brain wo con [MR] Stat MRI 06/02/16 16:38 Completed EV echocardiogram Stat Y 06/03/16 16:40 Completed Date of admission: 06/02/16 16:33 Primary care physician: Rene Mota DO Consults: 06/02/16 16:41 Consult to Neurology [CONS] Routine Consulting Provider: Neurology [facility] Reason for Consult: Syncope, vertigo after brain surgery. Call Completed: Yes 06/02/16 20:54 Consult to Pastoral Services [CONS] Routine Comment: Consult to Supervisor [employer] [CONS] Routine Reason for SW Consult: Pt reports financial difficulty, much stress and depression r/t finances and personal life. 06/03/16 10:32 Consult to Interpret Exam [CONS] Routine Consulting Provider: Susana Magaña I Consult to Interpret Exam: Interpret EEG 06/03/16 14:48 Consult to Tank Cooper [CONS] Routine Comment: HgbA1C 9.8 - Patient Status Disposition: Home, Self-Care Condition: Good Overall status at discharge: patient is back to baseline - Discharge Instructions Follow Up With: Rene Mota DO [Primary Care Provider] - 06/13/16 11:00 am Additional Instructions: Follow with Primary care physician within 7 days, consider tilt table test as outpatient. COntinue Aspirin. May have physical therapy as outpatient. Fall precautions. Insist on diabetic diet and tight glucose control - Diet and Activity Activity: increase activity as tolerated Diet: diabetic diet Hospital course: Ms. Dang is a 65 year old female with PMHx of DM2 insulin dep, HTN, anxiety, brain surgery in last June ("water drainage" per pt) in [facility] by Dr Hooper. After surgery, patient started to feel vertigo, symptoms is getting worse recently. Patient has syncope twice on day prior to admission and twice on the day of admission. She complained of dizziness and headache prior to syncope. She denied palpitations prior to syncope. Syncope was witnessed by family, lasted several seconds. Patient denies injury. Family said the patient has no shaking during syncope. Patient denied urinary or fecal incontinence, denied tongue bite. Patient was sent to emergency room for syncope. She was found hyperglycemia at 400 level. Ketone is negative. Patient has poorly controlled diabetes, last hemoglobin A1c checked 2 months ago , was 12. She has chronic diarrhea with loose stool 3 time a day for 3 months. Neurology jessica consulted. MRI and MRA of brain and neck did not show acute changes. MRI showed a remote lacunar infarct of the left cerebellar hemisphere. EEG was unremarkable. ECHO showed EF of 60-65% with mild diastolic dysfunction. Mild Pulm HTN. Was not orthostatic although her symptoms are compatible with that. Dehydration was considered. No symptoms since yesterday. Was evaluated by OT and no rehab was recommended. The patient prefers to be discharged in order to follow with her PCP. - Time Spent with Patient Total time spent providing and/or coordinating discharge services: Greater than 30 minutes (40 min) - Constitutional Vitals: Temp Pulse Resp BP Pulse Ox 97.3 F L 94 16 144/72 96 06/04/16 10:30 06/04/16 10:30 06/04/16 10:30 06/04/16 10:30 06/04/16 10:30 General appearance: Present: A&O X 3, obese, answers questions appropriately - Head Head exam: Present: atraumatic, normocephalic - Eye Eye exam: Present: PERRL, conjuntiva pink, sclera anicteric Pupils: Present: PERRL - Neck Neck exam general surgery: Present: supple, trachea midline. Absent: lymphadenopathy - Respiratory Respiratory exam: Present: CTAB. Absent: accessory muscle use, rales, rhonchi, wheezes - Cardiovascular Cardiovascular exam: Present: RRR, +S1, +S2. Absent: diastolic murmur, gallop, rubs, systolic murmur - GI/Abdominal GI/Abdominal exam: Present: normal bowel sounds, soft, no peritoneal signs. Absent: distended, tenderness - Extremities Exam Extremities exam: Present: warm, radial pulses palpable and symetrical. Absent : calf tenderness, cyanotic, pedal edema - Neurological Exam Neurological exam: Present: CN II-XII intact, oriented X3, no focal deficits. Absent: pronater drift, facial droop, speech deficit - Skin Skin exam: Present: dry, intact
== END 2016-06-04 13:04 | disposition home or self-care (01) | DRG 312 ==
LOC: EMEROO 12:56 → 3ANU 12:56 → SUATTDRO 16:33 → 3ANU 19:07
PROVIDERS: ADMIT Nurse Practitioner Acute Care; ATTEND Internal Medicine